=== PATIENT | female | born 1930 | race Caucasian/White ===

== ENCOUNTER 2016-12-21 09:52 | Inpatient (IN) | payer MEDICARE ==
[~2016-12-21] VITALS: Ht 162.6 cm; Wt 56.9 kg
--- OUTSIDE RECORDS SUMMARY | 2016-12-21 10:01 | XMS REPORT | Continuity of Care Document ---
Author Author [facility] Address Unknown Phone Unavailable Allergies Active Description Code Type Severity Reaction Onset Reported/Identified Relationship to Patient Clinical Status Yes Penicillins [id number] Drug Allergy Unknown N/A 07/28/2016 Medications Problems Date Dx Coded Attending Type Code Diagnosis Diagnosed By 11/01/2014 DELMA CASTRO, ARIAN Adams Ot 959.7 11/01/2014 DELMA CASTRO, ARIAN Adams Ot E849.0 11/01/2014 DELMA CASTRO, ARIAN Adams Ot E885.9 11/01/2014 Gibran CASTRO, Enrique Remy Ot 788.1 02/10/2015 ANGEL STEWART Ot 686.9 04/22/2015 DELMA CASTRO, ARIAN Adams Ot 959.7 04/22/2015 ARIAN NGUYỄN MD Ot E849.0 04/22/2015 ARIAN NGUYỄN MD Ot E885.9 04/22/2015 Enrique Leary MD Ot 788.1 04/22/2015 ANGEL STEWART Ot 686.9 04/28/2015 JEAN CASTRO, UBALDO V Ot 300.00 04/28/2015 JEAN CASTRO, UBALDO V Ot 366.9 05/26/2015 JEAN CASTRO, UBALDO V Ot H26.9 10/28/2015 STEVE PABLO MD Ot F32.9 MAJOR DEPRESSIVE DISORDER, SINGLE EPISOD 10/28/2015 STEVE PABLO MD Ot I10 ESSENTIAL (PRIMARY) HYPERTENSION 10/28/2015 STEVE PABLO MD Ot J44.9 CHRONIC OBSTRUCTIVE PULMONARY DISEASE , U 10/28/2015 STEVE PABLO MD Ot M85.80 OT DISRD OF BONE DENSITY AND STRUCTURE, 10/28/2015 STEVE PABLO MD Ot R42 DIZZINESS AND GIDDINESS 10/28/2015 STEVE PABLO MD Ot R51 HEADACHE 10/28/2015 STEVE PABLO MD Ot R53.1 WEAKNESS 10/28/2015 STEVE PABLO MD Ot Z87.891 PERSONAL HISTORY OF NICOTINE DEPENDENCE 10/29/2015 REYES , MEL Remy Ot R11.2 10/29/2015 REYES DO, MEL Remy Ot R19.7 10/29/2015 REYES DO, MEL Remy Ot R42 11/19/2015 REYES DO, MEL Remy Ot R11.2 NAUSEA WITH VOMITING, UNSPECIFIED 11/19/2015 REYES DO, MEL Remy Ot R19.7 DIARRHEA, UNSPECIFIED 11/19/2015REYES DO, MEL Remy Ot R42 DIZZINESS AND GIDDINESS 11/26/2015 REYES DO, MEL Remy Ot R11.2 NAUSEA WITH VOMITING, UNSPECIFIED 11/26/2015REYES DO, MEL Remy Ot R19.7 DIARRHEA, UNSPECIFIED 11/26/2015REYES DO, MEL Remy Ot R42 DIZZINESS AND GIDDINESS 03/04/2016 ANGEL STEWART Ot 686.9 LOCAL SKIN INFECTION NOS 07/28/2016 REYES MEL Ot S00.83XA CONTUSION OF OTHER PART OF HEAD, INITIAL 07/28/2016 REYES MEL Ot S41.011A LACERATION W/O FOREIGN BODY OF RIGHT MAX 07/28/2016 REYES , MEL Sandrita Ot S51.011A LACERATION WITHOUT FOREIGN BODY OF RIGHT 07/28/2016 REYES MEL Sandrita Ot W01.198A FALL SAME LEV FROM SLIP/TRIP W STRIKE AG 07/28/2016 AMY LOPEZMEL Ot Y92.[address] IN [facility] NON-INSTITUT ( PRIVATE 07/28/2016 REYES MEL LOPEZ Ot Z23 ENCOUNTER FOR IMMUNIZATION 07/30/2016 REYES , MEL Remy Ot S00.83XA CONTUSION OF OTHER PART OF HEAD, INITIAL 07/30/2016 REYES MEL LOPEZ Ot S41.011A LACERATION W/O FOREIGN BODY OF RIGHT MAX 07/30/2016 REYES MEL LOPEZ Ot S51.011A LACERATION WITHOUT FOREIGN BODY OF RIGHT 07/30/2016 REYES , MEL Remy Ot W01.198A FALL SAME LEV FROM SLIP/TRIP W STRIKE AG 07/30/2016 REYES MEL LOPEZ Ot Y92.[address] IN [facility] NON-INSTITUT ( PRIVATE 07/30/2016 MEL REYES DO Ot Z23 ENCOUNTER FOR IMMUNIZATION Procedures Results Encounters ACCT No. Visit Date/Time Discharge Status Pt. Type Provider Facility Loc./Unit Complaint [id number] 07/28/2016 10:57:00 2015 12:13:00 DIS Emergency REYES DO [facility] ED [id number] 07/28/2016 10:45:00 2015 10:45:00 CAN Preadmit NATALIA ROBLEDO, [facility] [id number] 10/27/2015 10:06:00 2015 17:08:00 DIS Inpatient BEV CASTRO, [facility] MED/SURG [id number] 05/26/2015 10:01:00 2014 13:50:00 DIS Outpatient JEAN CASTRO, [facility] [id number] 04/28/2015 06:58:00 2014 09:47:00 DIS Outpatient JEAN CASTRO, [facility] [id number] 11/01/2014 17:10:00 2014 23:59:59 [id number] 08/14/2013 12:25:00 2013 23:59:59 CLS Outpatient Gibran CASTRO, Enrique [facility] LAB [id number] 08/08/2013 18:40:00 2013 23:59:59 CLS Outpatient DELMA CASTRO, ARIAN Adams [facility] EMS [id number] 10/27/2015 07:47:00 ACT Outpatient [facility]
[2016-12-21 10:15] LABS: WHITE BLOOD COUNT 21.99 10^3uL (4.0-11.0)
[2016-12-21 10:16] LABS: MEAN CORPUSCULAR HGB CONC 32.9 g/dL (31.0-37.0); MEAN CORPUSCULAR VOLUME 81 FL (80-100); MEAN PLATELET VOLUME 11.1 FL (6.0-9.5); PLATELET COUNT 282 10^3uL (150-450)
[2016-12-21] MEDS ORDERED: ALBUTEROL/IPRATROPIUM 3MG-0.5MG/3ML (DUONEB) NEB VIAL INH ONE (10:20)
[2016-12-21 10:21] LABS: MEAN CORPUSCULAR HEMOGLOBIN 26.7 PG (26.0-34.0)
[2016-12-21 10:24] LABS: ANION GAP 17.1 MEQ/L (3-15); CALCULATED IONIZED CALCIUM 4.3 mg/dL (3.8-4.6); TOTAL PROTEIN 7.6 g/dL (6.4-8.5)
[2016-12-21] MEDS ORDERED: SODIUM CHLORIDE FLUSH 3 ML SYR IV PRN (10:25)
[2016-12-21] MEDS ORDERED: SODIUM CHLORIDE FLUSH 10 ML SYR IV PRN (10:25)
[2016-12-21 10:27] LABS: BAND NEUTROPHILS % 20 % (0-6); EOSINOPHILS % 0 % (0-4); LYMPHOCYTES # 0.7 #; MONOCYTES # 2.1 #; MONOCYTES % 10 % (3-11); SEGMENTED NEUTROPHILS % 66 % (51-67); TOTAL CELLS COUNTED 100
[2016-12-21 10:28] LABS: RBC MORPH NORMAL (NORMAL)
[2016-12-21] MEDS ORDERED: LEVOFLOXACIN 750 MG/150 ML IV 150 ML IV ONE (10:40)
--- NOTE | 2016-12-21 10:48 | NUR ---
Patient is unable to void at this time. Sipping water per request.
--- NOTE | 2016-12-21 10:58 | Diagnostic Imaging Report ---
INDICATION: Shortness of breath. COMPARISON: 10/27/2015. FINDINGS: Heterogeneous consolidations are present in the right mid and lower lung zones. These are new since prior examination. Possible small right pleural effusion. No pneumothorax. Normal heart size. Normal pulmonary vasculature. IMPRESSION: Right basilar heterogeneous consolidations may be due to pneumonia or aspiration, depending on clinical scenario. Consider followup PA and lateral chest radiographs in four weeks after appropriate medical management to assess for resolution and exclude underlying malignancy. Dictated by: Dictated on workstation # [id number]
[2016-12-21] MEDS ORDERED: POLYETHYLENE GLYCOL 17 GM (MIRALAX) PACKET PO PRN (12:05)
[2016-12-21] MEDS ORDERED: DOCUSATE SODIUM 100 MG (COLACE) CAP PO PRN (12:05)
[2016-12-21] MEDS ORDERED: ONDANSETRON 4 MG (ZOFRAN) ORAL DISSOLVE TAB PO PRN (12:05)
[2016-12-21] MEDS ORDERED: MAG HYDROX/AL HYDROX/SIMETH 200-200-20/5 ML (MAG-AL PLUS) 30 ML UDC PO PRN (12:05)
[2016-12-21] MEDS ORDERED: MAGNESIUM HYDROXIDE 80MG/ML (MILK OF MAGNESIA) 30 ML UDC PO PRN (12:05)
[2016-12-21] MEDS ORDERED: CALCIUM CARBONATE CHEWABLE 300 MG (TUMS) TABLET PO PRN (12:05)
[2016-12-21] MEDS ORDERED: methylPREDNISolone 125 MG (Solu-MEDROL) VIAL IV ONE (12:05)
[2016-12-21] MEDS ORDERED: PROMETHAZINE HCL INJ 12.5 MG in SODIUM CHLORIDE 25 ML IV PRN (12:05)
--- NOTE | 2016-12-21 12:15 | History and Physical (E) ---
History & Physical PCP: Enrique Leary MD CC: Respiratory failure, pneumonia HPI Carlee Morse is a 86 year old female admitted from ED 12/21 where she presented from assisted living via EMS for respiratory distress. ED physician reports illness onset was Sunday 12/17. Had nausea, no vomiting. Had some diarrhea. [place] lousy since. Congestion in chest started 12/19 and has been getting worse. Today she was found by EMS to have SpO2 78% RA. They gave two breathing treatments. In ED, tep 99.9, HR 133, RR 26. SpO2 improved to 91% on 4 L. WBC 21.99 with 66% N and 20% B. Chemistry showed bili 1.5, BUN 34, Cr 0.91, AlkP 142, NT-pro-BNP 1560, CRP 38.70. Lactic acid was normal. UA pending. CXR as noted below showing pneumonia. She was given levofloxacin in ED and admitted for further management. On arrival to unit, awake, interactive, oriented. Was able to ambulate from cart to bed. Speaking in full sentences but has a wet sounding cough. Tachycardia noted. Relates history as outlined above. [place] fevered at times but didn't check her temp. No chills. No vomiting. Diarrhea had already improved. Has had low appetite. Didn't use more of her albuterol. Was still taking fluticasone/salmeterol twice daily. PMH * Cataracts * COPD * Depression * Osteopenia * HTN * History of tobacco abuse * Vertigo PSH * Bilateral cataract surgery * Left Ankle ORIF * Bilateral breast biopsies ALLERGIES: Please see list at end of report. HOME MEDICATIONS: Please see list at end of report. FH Mother at a relatively young age (patient was 6 years old) of uncertain cause. May have had cancer. Father of old age due to [place]. One brother had heart problems. Sister of kidney failure. Another of ALS. SH . Lives independently in apartment at [facility]. Quit smoking two years ago. No drugs or alcohol use. Daughter lives in [place]. Son lives in [place]. ROS CONSTITUTION: [place] fevered. HEENT: No change in vision or hearing. Scant bleeding, lower lip. CV: No chest pain, palpitations. PULM: Per HPI, exam. GI: Nausea but no vomiting. Diarrhea resolved. : No dysuria. No blood in urine. MS: Back pain NEURO: No numbness or tingling. No weakness. INTEG: No rashes, lesions, or sores. ENDO: No heat or cold intolerance. No polydipsia or polyuria. HEME/LYMPH: No easy bruising or bleeding. No swollen glands. PSYCH: No change in mood or behavior. OBJECTIVE Vital Signs Date Time Temp Pulse Resp B/P Pulse Ox O2 Delivery O2 Flow Rate FiO2 12/21/16 10:05 91 Nasal Cannula 4 12/21/16 10:02 99.9 133 26 122/116 GEN: Awake, alert, oriented HEENT: EOMI, clear sclerae, dry oral mucosa. Sore to bottom lip. Edentulous. CV: Tachy, difficult to appreciate murmur. LUNGS: Diminished with apical wheeze bilaterally. ABD: Soft, NT/ND with normal bowel sounds. EXTR: No C/C/E. Normal peripheral pulses. INTEG: No rash. Age related changes. NEURO: No focal motor neuro deficit. Weight: 54.5 kg Laboratory Results-14 Days 12/21/16 09:36: Absolute Band Neutrophils 4.2, Alanine Aminotransferase (ALT/SGPT) 22L, Albumin 4.0#, Albumin/Globulin Ratio 1.111, Alkaline Phosphatase 142H, Anion Gap 17.1H, Aspartate Amino Transf (AST/SGOT) 36, BUN/Creatinine Ratio 37H, Band Neutrophils % 20H, Basophils # (Auto) , Basophils # (Manual) 0.0, Basophils % ( Manual) 0, Basophils (%) (Auto) , Blood Morphology Comment Normal, Blood Urea Nitrogen 34#H, C-Reactive Protein 38.70H, Calcium Level 10.1#, Calcium/Ionized Calcium Ratio 4.3, Calculated Osmolality 279L, Carbon Dioxide Level 24, Chloride Level 103, Creatinine 0.91, Differential Total Cells Counted 100, Eosinophils # 0.0, Eosinophils # (Auto) , Eosinophils % (Manual) 0, Eosinophils (%) (Auto) , Estimat Glomerular Filtration Rate 70.6, Estimated GFR (Non- 58.3, Glucose Level 120H, Hematocrit 42.00, Hemoglobin 13.8, Lymphocytes # 0.7, Lymphocytes # (Auto) , Lymphocytes % (Manual) 3L, Lymphocytes (%) (Auto) , Mean Corpuscular Hemoglobin 26.7, Mean Corpuscular Hemoglobin Concent 32.9, Mean Corpuscular Volume 81, Mean Platelet Volume 11.1H , Metamyelocytes % 1, Monocytes # 2.1, Monocytes # (Auto) , Monocytes % (Manual ) 10, Monocytes (%) (Auto) , RP-Fkc-V-Type Natriuretic Peptide 1560H, Neutrophils # 14.5, Neutrophils # (Auto) , Neutrophils (%) (Auto) , Platelet Count 282, Potassium Level 3.9, Red Blood Count 5.16H, Red Cell Distribution Width 14.2, Segmented Neutrophils % 66, Sodium Level 140, Total Bilirubin 1.5#H , Total Protein 7.6, White Blood Count 21.99H 12/21/16 10:25: Lactic Acid Level 2.1, Troponin I < 0.012 MICRO 12/21 Blood culture PENDING 12/21 Sputum culture PENDING IMAGING 12/21/16 CHEST 1 VIEW, AP/PA ONLY* INDICATION: Shortness of breath. COMPARISON: 10/27/2015. FINDINGS: Heterogeneous consolidations are present in the right mid and lower lung zones. These are new since prior examination. Possible small right pleural effusion. No pneumothorax. Normal heart size. Normal pulmonary vasculature. IMPRESSION: Right basilar heterogeneous consolidations may be due to pneumonia or aspiration, depending on clinical scenario. Consider followup PA and lateral chest radiographs in four weeks after appropriate medical management to assess for resolution and exclude underlying malignancy. ASSESSMENT Carlee Morse is a 86 year old female admitted from ED 12/21 with acute respiratory failure and SIRS/sepsis attributed to community acquired pneumonia. She has a few chronic problems. PLAN * SIRS/Sepsis: Due to pneumonia. * Acute Respiratory Failure: Due to pneumonia, COPD exacerbation. Acapella. Oxygen protocol. * Community Acquired Pneumonia: Blood culture pending. Sputum pending sample. Acapella. Guaifenesin. Levofloxacin. * COPD with Acute Exacerbation: Due to pneumonia. Oxygen protocol. Methylprednisolone with transition to prednisone. Fluticasone/salmeterol, albuterol. * Deconditioning: PT/OT eval and treat. * Dehydration: NS bolus given in ED. Additional 1 L maintenance on admit. Monitor closely. * Tachycardia: Likely due to sepsis. Check EKG, troponin, monitor tele until improving. * F/E/N: Regular diet. Peripheral IV. I&O, daily weight. * Prophylaxis: Enoxaparin * Code Status: Full * Dispo: Inpatient, expecting 3 day stay and need for skilled care. CHRONIC ISSUES * Depression: Citalopram * HTN: Observe. Allergies/Home Medications Allergies: Coded Allergies: Penicillins (Unverified Allergy, Unknown, 07/28/16) Reported Home Medications Scheduled Albuterol Sulfate (Proventil HFA) 6.7 GM IH DAILY (Reported) Fluticasone/Salmeterol (Advair 100-50 Diskus) 1 EACH IH BID (Reported) Hydroxyzine HCl (Hydroxyzine HCl) 25 MG PO HS (Reported) Sertraline HCl (Sertraline HCl) 25 MG PO DAILY (Reported) Copies to: End of Report . STEVE PABLO MD December 21, 2016 11:33
--- NOTE | 2016-12-21 12:15 | NUR ---
Pt admitted to room 314 via cart from ED. Pt ambulated from cart in floyd to room with 2 hand held assist, c/o weakness. States she has been using a walker at her apartment since Tuesday.
[2016-12-21 12:38] VITALS: BP 135/69
[2016-12-21 12:39] VITALS: BP 135/69
--- NOTE | 2016-12-21 13:13 | NUR ---
NS@100ml/hr infusing as ordered. Solu-medrol given. Tele in place. Pt has lunch tray but decreased appetite. Remains on 4L nc continued from ED- sats from 90-94%. RR 28/min. Will cont to monitor. Oriented to room and call light. Yellow gown/socks in place, bed alarm turned on- educated to call for assist getting up since she is weak- she verbalizes understanding.
[2016-12-21] MEDS: ACETAMINOPHEN 325 MG TAB (TYLENOL) PO PRN ×2 (14:27→21:39)
[2016-12-21 16:08] VITALS: BP 130/87
--- NOTE | 2016-12-21 18:00 | NUR ---
Pt resting in bed, daughter Anna at bedside. Had Tylenol 650mg PO at 1425 for c/o headache.
[2016-12-21 19:46] VITALS: BP 148/66
[2016-12-21] MEDS ORDERED: FLUTICASONE/SALMETEROL HFA 115/21 MCG (ADVAIR) COMMON CANNISTER INH ONE (19:51)
[2016-12-21] MEDS: FLUTICASONE/SALMETEROL HFA 115/21 MCG (ADVAIR) COMMON CANNISTER INH SCH (19:58)
--- NOTE | 2016-12-21 20:00 | NUR ---
Resting in bed. Resp even. Oxygen remains on at 4 liters per NC. Patient does get SOA with minimal exertion, does recover fairly readily. Telemetry shows Sinus Tach. Patient denies any discomforts. Has coarse lung sounds bilaterally. Bed alarm on for safety. Call light within reach.
--- NOTE | 2016-12-21 21:39 | NUR ---
Tylenol 650mg administered for sleep per patient request. Bed alarm on for safety.
[2016-12-22 00:22] VITALS: BP 125/50
[2016-12-22 03:56] VITALS: BP 122/54
[2016-12-22 06:00] LABS: MEAN CORPUSCULAR HEMOGLOBIN 27.4 PG (26.0-34.0); MEAN CORPUSCULAR HGB CONC 33.2 g/dL (31.0-37.0); MEAN CORPUSCULAR VOLUME 82 FL (80-100); MEAN PLATELET VOLUME 10.5 FL (6.0-9.5); PLATELET COUNT 293 10^3uL (150-450); WHITE BLOOD COUNT 13.99 10^3uL (4.0-11.0)
[2016-12-22 06:26] LABS: ALBUMIN 3.4 g/dL (3.4-5.0); ANION GAP 13.8 MEQ/L (3-15)
--- NOTE | 2016-12-22 06:28 | NUR ---
Rested well tonight. SL patent without complications. Pleasant. Still remains on 4 liters per nasal cannula. Does get SOA walking short distances. No coughing throughout the night. Ambulates to the bathroom with stand by assist. No discomforts voiced. Forgets limitations at times. Uses call light for needs. Bed alarm on for safety.
[2016-12-22 06:51] LABS: BAND NEUTROPHILS % 1 % (0-6); EOSINOPHILS % 0 % (0-4); MONOCYTES # 0.7 #; MONOCYTES % 5 % (3-11); SEGMENTED NEUTROPHILS % 87 % (51-67); TOTAL CELLS COUNTED 100
[2016-12-22 06:52] LABS: RBC MORPH NORMAL (NORMAL)
[2016-12-22] MEDS: FLUTICASONE/SALMETEROL HFA 115/21 MCG (ADVAIR) COMMON CANNISTER INH SCH ×2 (07:48→19:52)
--- NOTE | 2016-12-22 07:51 | NUR ---
SpO2 96% on 4Lpm cannula. Faint end exp wheezes at bases bilat. Acapella x 12 goals, fair effort. NPC.
[2016-12-22 08:00] VITALS: BP 113/49
--- NOTE | 2016-12-22 08:10 | NUR ---
Pt remains on 4L nc. RR 24, deep resps. Awake, alert/oriented. Daughter brought dentures last evening- in place.
[2016-12-22] MEDS: ENOXAPARIN 30 MG/0.3 ML (LOVENOX) SYR SC SCH (08:48)
[2016-12-22] MEDS: SERTRALINE 25 MG PO SCH (08:49)
[2016-12-22] MEDS: predniSONE 20 MG (DELTASONE) TABLET PO SCH (08:49)
--- NOTE | 2016-12-22 10:19 | Progress Note (E) ---
Progress Note SUBJECTIVE No issues reported overnight. Afebrile. 4 L oxygen, though. Weight up 3 kg from admit. WBC much improved, down to 13.99 from 21.99. Alert and interactive, pleasant. Didn't sleep well last night but she does feel better overall. Updated her on findings, plan of care. OBJECTIVE Vital Signs Date Time Temp Pulse Resp B/P Pulse Ox O2 Delivery O2 Flow Rate FiO2 12/22/16 09:23 98 12/22/16 08:00 97.7 18 113/49 97 Nasal cannula 12/21/16 16:08 4L.00 I & O 12/21/16 12/22/16 Cumulative From/Thru 19:00 07:00 12/21/16 10:02 - 12/22/16 05:26 Intake Total 20 ml 500 ml 520 ml Output Total 350 ml 350 ml Balance 20 ml 150 ml 170 ml GEN: Awake, alert, oriented HEENT: EOMI, clear sclerae, dry oral mucosa. Sore to bottom lip. Edentulous. CV: Tachycardia improved. LUNGS: Diminished with no audible R/R/W. ABD: Soft, NT/ND with normal bowel sounds. EXTR: No C/C/E. Normal peripheral pulses. INTEG: No rash. Age related changes. NEURO: No focal motor neuro deficit. Weight: 57.6 kg (54.5 kg on admit) Lab-Past 14 Days, 35 Results 12/21/16 09:36: Absolute Band Neutrophils 4.2, Alanine Aminotransferase (ALT/SGPT) 22L, Albumin 4.0#, Albumin/Globulin Ratio 1.111, Alkaline Phosphatase 142H, Anion Gap 17.1H, Aspartate Amino Transf (AST/SGOT) 36, BUN/Creatinine Ratio 37H, Band Neutrophils % 20H, Basophils # (Auto) , Basophils # (Manual) 0.0, Basophils % ( Manual) 0, Basophils (%) (Auto) , Blood Morphology Comment Normal, Blood Urea Nitrogen 34#H, C-Reactive Protein 38.70H, Calcium Level 10.1#, Calcium/Ionized Calcium Ratio 4.3, Calculated Osmolality 279L, Carbon Dioxide Level 24, Chloride Level 103, Creatinine 0.91, Differential Total Cells Counted 100, Eosinophils # 0.0, Eosinophils # (Auto) , Eosinophils % (Manual) 0, Eosinophils (%) (Auto) , Estimat Glomerular Filtration Rate 70.6, Estimated GFR (Non- 58.3, Glucose Level 120H, Hematocrit 42.00, Hemoglobin 13.8, Lymphocytes # 0.7, Lymphocytes # (Auto) , Lymphocytes % (Manual) 3L, Lymphocytes (%) (Auto) , Mean Corpuscular Hemoglobin 26.7, Mean Corpuscular Hemoglobin Concent 32.9, Mean Corpuscular Volume 81, Mean Platelet Volume 11.1H , Metamyelocytes % 1, Monocytes # 2.1, Monocytes # (Auto) , Monocytes % (Manual ) 10, Monocytes (%) (Auto) , WI-Yid-F-Type Natriuretic Peptide 1560H, Neutrophils # 14.5, Neutrophils # (Auto) , Neutrophils (%) (Auto) , Platelet Count 282, Potassium Level 3.9, Red Blood Count 5.16H, Red Cell Distribution Width 14.2, Segmented Neutrophils % 66, Sodium Level 140, Total Bilirubin 1.5#H , Total Protein 7.6, White Blood Count 21.99H 12/21/16 10:25: Lactic Acid Level 2.1, Troponin I < 0.012 12/21/16 15:17: Troponin I < 0.012 12/22/16 05:25: Absolute Band Neutrophils 0.1, Albumin 3.4, Anion Gap 13.8, Band Neutrophils % 1 , Basophils # (Auto) , Basophils # (Manual) 0.0, Basophils % (Manual) 0, Basophils (%) (Auto) , Blood Morphology Comment Normal, Blood Urea Nitrogen 31H , Calcium Level 9.7, Carbon Dioxide Level 27, Chloride Level 104, Creatinine 0.90, Differential Total Cells Counted 100, Eosinophils # 0.0, Eosinophils # ( Auto) , Eosinophils % (Manual) 0, Eosinophils (%) (Auto) , Estimat Glomerular Filtration Rate 71.5, Estimated GFR (Non- 59.1, Glucose Level 150#H, Hematocrit 37.90, Hemoglobin 12.6, Lymphocytes # 1.0, Lymphocytes # (Auto ) , Lymphocytes % (Manual) 7L, Lymphocytes (%) (Auto) , Mean Corpuscular Hemoglobin 27.4, Mean Corpuscular Hemoglobin Concent 33.2, Mean Corpuscular Volume 82, Mean Platelet Volume 10.5H, Monocytes # 0.7, Monocytes # (Auto) , Monocytes % (Manual) 5, Monocytes (%) (Auto) , Neutrophils # 12.2, Neutrophils # (Auto) , Neutrophils (%) (Auto) , Platelet Count 293, Potassium Level 3.8, Red Blood Count 4.60, Red Cell Distribution Width 14.0, Segmented Neutrophils % 87H, Sodium Level 141, White Blood Count 13.99H, Phosphorus Level 4.4# MICRO 12/21 Blood culture PENDING 12/21 Sputum culture PENDING IMAGING 12/21/16 CHEST 1 VIEW, AP/PA ONLY* INDICATION: Shortness of breath. COMPARISON: 10/27/2015. FINDINGS: Heterogeneous consolidations are present in the right mid and lower lung zones. These are new since prior examination. Possible small right pleural effusion. No pneumothorax. Normal heart size. Normal pulmonary vasculature. IMPRESSION: Right basilar heterogeneous consolidations may be due to pneumonia or aspiration, depending on clinical scenario. Consider followup PA and lateral chest radiographs in four weeks after appropriate medical management to assess for resolution and exclude underlying malignancy. ASSESSMENT Carlee Morse is a 86 year old female admitted from ED 12/21 with acute respiratory failure and SIRS/sepsis attributed to community acquired pneumonia. She has a few chronic problems. PLAN * SIRS/Sepsis: Due to pneumonia. * Acute Respiratory Failure: Due to pneumonia, COPD exacerbation. Acapella. Oxygen protocol. * Community Acquired Pneumonia: Blood culture pending. Sputum pending. Acapella. Guaifenesin. Levofloxacin (Q48H dosing due to renal function.) * COPD with Acute Exacerbation: Due to pneumonia. Oxygen protocol. Methylprednisolone with transition to prednisone. Fluticasone/salmeterol, albuterol. * Deconditioning: PT/OT eval and treat. * Dehydration: NS bolus given in ED. Additional 1 L maintenance on admit. Monitor closely. * Tachycardia: Resolved. Likely due to sepsis. * F/E/N: Regular diet. Peripheral IV. I&O, daily weight. * Prophylaxis: Enoxaparin * Code Status: Full * Dispo: Inpatient, expecting 3 day stay and need for skilled care. CHRONIC ISSUES * Depression: Citalopram * HTN: Observe. STEVE PABLO MD December 22, 2016 10:11
--- NOTE | 2016-12-22 10:35 | NUR ---
NUTRITION ASSESSMENT Level 1 Patient: Carlee Morse Age/Sex: 86/F Date Screened: 12-22-16 Weight: 126.7#/57.6 kg Height: 64 inches Primary Diagnosis: pneumonia, SIRS/sepsis Diet Order: regular Relevant labs: glucose 150 Food allergies: N Nutrition Assessment Criteria Age over 80: 4 points Body Mass Index (BMI) under 19: N Admission Screening Indicates Risk? N Moderate/High Risk Diagnosis: 3 points TPN or PPN: N NPO or clear liquid diet: N Serum Glucose <70 or >180: N Hgb A1c >6.7: N/A Total: 7 points Risk Screen: __ Patient at low nutritional risk based on available data; reevaluate in 5-7 days __ Patient at moderate nutritional risk based on available data; reevaluate in 3-5 days _X_ Patient at high nutritional risk; complete Nutrition Assessment within 48 hours of admission.
--- NOTE | 2016-12-22 11:13 | NUR ---
NUTRITION ASSESSMENT Level II Patient: Carlee Morse Age/Sex: 86/F Date Assessed: 12-22-16 ASSESSMENT Pertinent History: Patient admitted with pneumonia and SIRS/sepsis and screened at high nutritional risk secondary to elderly age and diagnosis. PMHx includes COPD, cataracts, depression, osteopenia, and HTN. She lives at Assisted Living. Pt. reports decreased appetite with some nausea; noted edentulism and a sore on her bottom lip present on admission. Weight hx. includes 128# in September 2015. Meds/Nutrition: Prednisone Weight: 126.7#/57.6 kg Height: 64 inches Body Mass Index (BMI): 21.8 Caret Body Weight : 120#/54.5 kg % IBW: 105% GASTROINTESTINAL Appetite: fair, eating 25-50% Diet Order: regular Unintentional loss of >10 lbs. in 3 months: N Difficult to chew/swallow: N Diabetes: N Relevant Labs: glucose 150 Calculations for Nutritional Assessment Estimated calorie needs: 25-28 kcals/kg = 1,425-1,600 kcals Estimated protein needs: 1.0-1.2 g/kg = 57-68 g./day DIAGNOSIS 1. Nutrition Diagnosis: Potential for inadequate intake related to anorexia as evidenced by reports of decreased appetite recently along with nausea and illness. NUTRITIONAL INTERVENTION Goal: Patient will receive adequate nutrition to meet her needs. Plan: Will provide regular diet as ordered and monitor intake for adequacy. MONITORING & EVALUATION _X_ Monitor patients menu selections _X_ Monitor patients food intake per nursing notes __ Monitor NPO/clear liquid days __ Monitor lab values __ Monitor I&O __ Other
[2016-12-22 12:00] VITALS: BP 140/46
[2016-12-22] MEDS: ACETAMINOPHEN 325 MG TAB (TYLENOL) PO PRN (12:30)
--- NOTE | 2016-12-22 12:30 | NUR ---
Pt c/o headache- rated 3/10- Tylenol offered, given at this time. daughter at bedside.
--- NOTE | 2016-12-22 12:50 | NUR ---
Information sent to [facility] to review for acceptance. Pt. has been accepted to their facility for skilled care. Possible discharge Tuesday.
--- NOTE | 2016-12-22 14:25 | NUR ---
Pt has been awake, alert/oriented all day, states she feels better than on admission. She reports cough is not as persistent as yesterday- shift stacker reported that she had not coughed all night. Daughter and son have been to visit. She has showered today, via shower chair. Yvrose RT reports she titrated O2 to 3L nc at 1340. Pt up in chair, visiting with daughter this afternoon. 20g IV intact to RFA.
--- NOTE | 2016-12-22 15:09 | Physical Therapy Evaluation(E) ---
Plan of Care STG: Plan-Treatment Functional: Amb Safe w/ AD on level STG Time Frame: 3 Days Goals Discussed/Agreed: Yes Plan: Gait & Transfer Training, Neuro Re-Education, Progressive Ambulation, Strengthening, Transfer Training, Therapy Excercise Discharge Recommendations: TCU/Skilled NH Aware of Dx and Prognosis: Yes Aware of Risk & Benefit: Yes To be Seen: Daily Tuesday-Tuesday Initial Evaluation Service Date/Time 12/22/16, 14:57 Primary Diagnosis: (1) Community acquired pneumonia ICD Code: J18.9 (2) SIRS (systemic inflammatory response syndrome) ICD Code: R65.10 (3) Upper respiratory infection ICD Code: J06.9 (4) Sepsis ICD Code: A41.9 Treatment Diagnosis: Onset Date: 12/21/2016 Start of Care Date: December 22, 2016 Resuscitation Status: Full Code Precaution/Isolation: Standard Precautions Fall Level: High Risk 51 or greater Initial Assessment Reason for Rehab: Increase Mobility, Increase Strength, Increase Balance, Increase Transfers, Increase Endurance Medical History: COPD, Hypertension, Other (vertigo, left ankle ORIF) Pain Location/Comment Mild left groin pain Prior Level of Function The patient lives at a [facility]. The patient ambulated independently around her home, no entry stairs. She was still driving. Rehabilitation Potential: Good Rehab Potential Based on Patient is motivated to improve and return home. Distance Walked in Feet Patient declined ambulation. ROM/Strength Hip Mobility: Right Hip Strength: 4- Left Hip Strength: 4- Knee Flexion Mobility: Right Knee Flexion Strength: 4- Left Knee Flexion Strength: 4- Knee Extension Mobility: Right Knee Extension Strength: 4 Left Knee Extension Strength: 4 Ankle Mobility: Right Ankle Strength: 4 Left Ankle Strength: 4 Assessment/Goals Initial Transfer Assessment Comment Patient declined moving from chair. Per review of chart patient was SBA ambulating to bathroom with nursing. Transfer Short Term Goals Rolling: Modified [place] Sit-Supine: Modified [place] Sitting Edge of Bed: Modified [place] Supine-Sit: Modified [place] Sit-Stand from bed: Contact Guard Assist Stand-Sit: Contact Guard Assist Ambulation: Contact Guard Assist (100 feet x 2 ) Distance to Walk in Feet 100 feet x 2 Transfer Longterm Goals Comment No intermediate manager goals to be set secondary to short anticipated length of stay Treatments Treatments Extremity: Both Lower Extremity Assistance: AROM Exercise: AP, Hip Flexion Comment Knee flexion/extension AROM; patient also encouraged to use flutter device throughout day. Coding Time In: 1135 Time Out: 1221 Total Minutes: 46 Charges: 76466 Eval< 20 min, 26726 Exercise Therp 15 m FATOUMATA CARIAS PT December 22, 2016 15:09
[2016-12-22 15:32] VITALS: BP 139/49
--- NOTE | 2016-12-22 15:44 | NUR ---
Pt working with Tierra DELCID
--- NOTE | 2016-12-22 17:46 | OT Therapy Evaluation (E) ---
POC Plan of Care Problems Identified: Activity Tolerance, ADLs, Lt UE Strength, Rt UE Strength, Safety Awareness Plan: Evaluation-OT, ADL/Self Care Management, Therapy Exercises, Therapy Activities, Pt/Family/Staff Education Frequency of OT: Five times weekly Duration of OT: Other (3 days ) Therapy to Include: ADL training, Balance with ADLs, Pt/family education, Therapeutic activities, UE strengthing Discharge Recommendations: TCU/Skilled NH Pt would benefit from skilled occupational therapy services to improve independence with self care tasks for return to prior level of function. Additionally to provide education to pt on energy conservation techniques to improve performance and ease of tasks at home. Pt. Aware of Dx and Prognosis: Yes Pt. Aware of Risk & Benefit: Yes Goals: Discussed with patient Short Term Goals Will Perform Grooming: With Setup/SBA Will Dress Upper Extremity: With Setup/SBA Will Dress Lower Extremity: With Setup/SBA Will do Bathing: With Setup/SBA Will do Toileting: With Setup/SBA Will Perform Funct Transfer: With Setup/SBA STG #1 Pt will participate in 15 min of ther-ex with use of energy conservation techniques as needed. STG #2 Pt will demonstrate ability to apply deep breathing techniques during daily activities and exercises with minimal prompting to ease shortness of breath and improve performance. Inital Evaluation/General Service Date/Time 12/22/16, 17:39 Primary Diagnosis: (1) Community acquired pneumonia ICD Code: J18.9 (2) SIRS (systemic inflammatory response syndrome) ICD Code: R65.10 (3) Upper respiratory infection ICD Code: J06.9 (4) Sepsis ICD Code: A41.9 Treatment Diagnosis: (1) Weakness ICD Code: R53.1 Onset Date: 12/17/16 Start of Care Date: December 22, 2016 Precaution/Isolation: Standard Precautions Fall Level: High Risk 51 or greater Resuscitation Status: Full Code Reason for Referral: Evaluation and Treat Pertinent Medical History: COPD, Hypertension, Other (vertigo, left ankle ORIF) Pain Level: 0 Oxygen Needed: Nasal cannula O2 liters/minute: 3L Rehabilitation Potential: Good Potential Based On Patient's prior level of function and motivation to get stronger. Rational for Skilled Treatment: Allow return to home, Deconditioning, Maximize Safety, Prevent Falls Living Status Prior to Admit: Alone ([facility]dependent [facility] ) Prior Level of Function: Independent ADLs Prior to onset, pt was independent with self care tasks and simple IADL tasks. Pt reports typically completing microwavable meals. Pt still drives and complete grocery shopping. Pt reports over the past week, she has been more out of breath and has felt weak. Support Persons: Adult Child (Son lives in [place]) Entry Into Home: Level Entry Shower and Tub Type: Tub/shower combo-rails (Pt has been completing a sponge bath at the sink ) Toilet Type: Raised with grab bars Comment Pt uses no assistive device for functional mobility. Current Function Assessment Mental Status Patient Orientation: Person, Place, Time, Situation Mental Status: Alert Cognition Attention: Intact Memory: Impaired Safety/Judgement: Impaired (Cueing for walker safety. ) Visual/Perceptual Skills Glassess: Yes Hearing: Impaired Hand Dominance Hand Dominance: Right ROM/Strength Range of Motion : Range of Motion Location: Bilateral ROM: Shoulder Limited Strength Comment BUE 4-/5 Endurance Activity Endurance: Becomes SOB, Fair, Needs energy saving techn, Requires freq rest breaks Bed Mobility/Transfers Bed Mobility: SBA Supine from Sit: SBA Sit to Stand: CGA Chair Transfer: CGA Sitting Balance: WFL ADLs Hand : Feeding Self: Independent Grooming: Grooming Status: Setup/SBA Dressing Dressing: Minimum assist Bathing Shower/Bench Transfer Ability: CGA Bathing- Type of Assistance: Minimum Assist Toileting Toilet Hygiene: Minimum Assist Toilet Transfer Ability: CGA CPT/G Codes Time In: 15:26 Time Out: 16:01 Total Minutes: 35 ( eval) CPT Codes: 71270 Eval< 20 minutes LIUDMILA GROVES OT December 22, 2016 17:46
--- NOTE | 2016-12-22 17:50 | NUR ---
Pt calls appropriately to use bathroom- ambulates to BR with 1SBA and walker/gait belt. Steady gait but unsteady getting off toilet.
[2016-12-22 19:42] VITALS: BP 123/79
--- NOTE | 2016-12-22 19:56 | NUR ---
SpO2 96% on 3Lpm nasal cannula while sitting in chair. BS clear and equal, but decreased.
[2016-12-23] VITALS (7 sets, daily range): BP systolic 115–160; BP diastolic 50–88
--- NOTE | 2016-12-23 06:05 | NUR ---
Pt. had an uneventful shift; slept in long intervals; O2 at 3L via NC; rare to occasional cough noted. Pt. called for assist PRN when ambulating to and fro bathroom; unsteady gait. Pt. denied pain. Pt. is very pleasant and cooperative.
[2016-12-23 06:07] LABS: MEAN CORPUSCULAR HGB CONC 31.9 g/dL (31.0-37.0); MEAN CORPUSCULAR VOLUME 82 FL (80-100); MEAN PLATELET VOLUME 10.1 FL (6.0-9.5); PLATELET COUNT 313 10^3uL (150-450); WHITE BLOOD COUNT 14.86 10^3uL (4.0-11.0)
[2016-12-23 06:15] LABS: MEAN CORPUSCULAR HEMOGLOBIN 26.2 PG (26.0-34.0)
[2016-12-23 06:21] LABS: BAND NEUTROPHILS % 1 % (0-6); EOSINOPHILS % 0 % (0-4); LYMPHOCYTES # 1.9 #; MONOCYTES # 0.7 #; MONOCYTES % 5 % (3-11); RBC MORPH NORMAL (NORMAL); SEGMENTED NEUTROPHILS % 81 % (51-67); TOTAL CELLS COUNTED 100
--- NOTE | 2016-12-23 08:15 | NUR ---
Pt sitting up on edge of bed at this time. Denies pain. States jokingly, "you just don't let anyone sleep around here!". SL intact. Skin warm, dry, intact. Resprs nonlabored, even on 3L NC. Denies needs. Call light within reach.
[2016-12-23] MEDS: FLUTICASONE/SALMETEROL HFA 115/21 MCG (ADVAIR) COMMON CANNISTER INH SCH ×2 (08:21→20:24)
--- NOTE | 2016-12-23 08:23 | NUR ---
SpO2 86% after pt returned from BR and had cannula out of her nose on her forw Addendum: 12/23/16 at 0825 by Doug Evans RT Had cannula on her forehead. Returned to nose and is currently on 3Lpm.
--- NOTE | 2016-12-23 08:50 | NUR ---
SpO2 90% on 3Lpm.
[2016-12-23] MEDS: predniSONE 20 MG (DELTASONE) TABLET PO SCH (08:54)
[2016-12-23] MEDS: SERTRALINE 25 MG PO SCH (08:54)
[2016-12-23] MEDS ORDERED: SODIUM CHLORIDE 100 ML ONE (08:55)
[2016-12-23] MEDS ORDERED: LEVOFLOXACIN 750 MG/150 ML IV 150 ML IV SCH (09:00)
[2016-12-23] MEDS: ENOXAPARIN 30 MG/0.3 ML (LOVENOX) SYR SC SCH (09:04)
[2016-12-23 09:33] LABS: ALBUMIN 2.8 g/dL (3.4-5.0)
--- NOTE | 2016-12-23 09:40 | Progress Note (E) ---
Progress Note SUBJECTIVE Weaned from 4 to 3 L NC yesterday. Afebrile. BP a little elevated at times. Had 1 BM. No major issues reported overnight. WBC slightly higher than yesterday, 14.86 from 13.99 but is getting steroids. Chemistry is still not reported in the EHR. Lab notified. OBJECTIVE Vital Signs Date Time Temp Pulse Resp B/P Pulse Ox O2 Delivery O2 Flow Rate FiO2 12/23/16 07:40 97.0 81 24 160/73 96 Nasal cannula 12/21/16 16:08 4L.00 I & O 12/22/16 12/23/16 Cumulative From/Thru 19:00 07:00 12/21/16 10:02 - 12/23/16 06:07 Intake Total 420 ml 574 ml 1514 ml Output Total 50 ml 700 ml 1100 ml Balance 370 ml -126 ml 414 ml GEN: Awake, alert, oriented. A bit breathless at bedside with physical therapy. Recovered gradually. HEENT: EOMI, clear sclerae, dry oral mucosa. Sore to bottom lip improving. Dentures. CV: Tachycardia improved. Regular without significant murmur. LUNGS: Diminished throughout. Apical wheezes audible anteriorly. ABD: Soft, NT/ND with normal bowel sounds. EXTR: No C/C/E. Normal peripheral pulses. INTEG: No rash. Age related changes. NEURO: No focal motor neuro deficit. Weight: 57.0 kg (54.5 kg on admit) Lab-Past 14 Days, 35 Results 12/21/16 09:36: Absolute Band Neutrophils 4.2, Alanine Aminotransferase (ALT/SGPT) 22L, Albumin 4.0#, Albumin/Globulin Ratio 1.111, Alkaline Phosphatase 142H, Anion Gap 17.1H, Aspartate Amino Transf (AST/SGOT) 36, BUN/Creatinine Ratio 37H, Band Neutrophils % 20H, Basophils # (Auto) , Basophils # (Manual) 0.0, Basophils % ( Manual) 0, Basophils (%) (Auto) , Blood Morphology Comment Normal, Blood Urea Nitrogen 34#H, C-Reactive Protein 38.70H, Calcium Level 10.1#, Calcium/Ionized Calcium Ratio 4.3, Calculated Osmolality 279L, Carbon Dioxide Level 24, Chloride Level 103, Creatinine 0.91, Differential Total Cells Counted 100, Eosinophils # 0.0, Eosinophils # (Auto) , Eosinophils % (Manual) 0, Eosinophils (%) (Auto) , Estimat Glomerular Filtration Rate 70.6, Estimated GFR (Non- 58.3, Glucose Level 120H, Hematocrit 42.00, Hemoglobin 13.8, Lymphocytes # 0.7, Lymphocytes # (Auto) , Lymphocytes % (Manual) 3L, Lymphocytes (%) (Auto) , Mean Corpuscular Hemoglobin 26.7, Mean Corpuscular Hemoglobin Concent 32.9, Mean Corpuscular Volume 81, Mean Platelet Volume 11.1H , Metamyelocytes % 1, Monocytes # 2.1, Monocytes # (Auto) , Monocytes % (Manual ) 10, Monocytes (%) (Auto) , CS-Uvk-[id number]-Type Natriuretic Peptide 1560H, Neutrophils # 14.5, Neutrophils # (Auto) , Neutrophils (%) (Auto) , Platelet Count 282, Potassium Level 3.9, Red Blood Count 5.16H, Red Cell Distribution Width 14.2, Segmented Neutrophils % 66, Sodium Level 140, Total Bilirubin 1.5#H , Total Protein 7.6, White Blood Count 21.99H 12/21/16 10:25: Lactic Acid Level 2.1, Troponin I < 0.012 12/21/16 15:17: Troponin I < 0.012 12/22/16 05:25: Absolute Band Neutrophils 0.1, Albumin 3.4, Anion Gap 13.8, Band Neutrophils % 1 , Basophils # (Auto) , Basophils # (Manual) 0.0, Basophils % (Manual) 0, Basophils (%) (Auto) , Blood Morphology Comment Normal, Blood Urea Nitrogen 31H , Calcium Level 9.7, Carbon Dioxide Level 27, Chloride Level 104, Creatinine 0.90, Differential Total Cells Counted 100, Eosinophils # 0.0, Eosinophils # ( Auto) , Eosinophils % (Manual) 0, Eosinophils (%) (Auto) , Estimat Glomerular Filtration Rate 71.5, Estimated GFR (Non- 59.1, Glucose Level 150#H, Hematocrit 37.90, Hemoglobin 12.6, Lymphocytes # 1.0, Lymphocytes # (Auto ) , Lymphocytes % (Manual) 7L, Lymphocytes (%) (Auto) , Mean Corpuscular Hemoglobin 27.4, Mean Corpuscular Hemoglobin Concent 33.2, Mean Corpuscular Volume 82, Mean Platelet Volume 10.5H, Monocytes # 0.7, Monocytes # (Auto) , Monocytes % (Manual) 5, Monocytes (%) (Auto) , Neutrophils # 12.2, Neutrophils # (Auto) , Neutrophils (%) (Auto) , Platelet Count 293, Potassium Level 3.8, Red Blood Count 4.60, Red Cell Distribution Width 14.0, Segmented Neutrophils % 87H, Sodium Level 141, White Blood Count 13.99H, Phosphorus Level 4.4# 12/23/16 05:30: Absolute Band Neutrophils 0.1, Albumin [Pending], Anion Gap [Pending], Band Neutrophils % 1, Basophils # (Auto) , Basophils # (Manual) 0.0, Basophils % ( Manual) 0, Basophils (%) (Auto) , Blood Morphology Comment Normal, Blood Urea Nitrogen [Pending], Calcium Level [Pending], Carbon Dioxide Level [Pending], Chloride Level [Pending], Creatinine [Pending], Differential Total Cells Counted 100, Eosinophils # 0.0, Eosinophils # (Auto) , Eosinophils % (Manual) 0 , Eosinophils (%) (Auto) , Estimat Glomerular Filtration Rate [Pending], Estimated GFR (Non- [Pending], Glucose Level [Pending], Hematocrit 37.00, Hemoglobin 11.8L, Lymphocytes # 1.9, Lymphocytes # (Auto) , Lymphocytes % (Manual) 13L, Lymphocytes (%) (Auto) , Mean Corpuscular Hemoglobin 26.2, Mean Corpuscular Hemoglobin Concent 31.9, Mean Corpuscular Volume 82, Mean Platelet Volume 10.1H, Metamyelocytes % 0, Monocytes # 0.7, Monocytes # (Auto) , Monocytes % (Manual) 5, Monocytes (%) (Auto) , Neutrophils # 12.0, Neutrophils # (Auto) , Neutrophils (%) (Auto) , Phosphorus Level [ Pending], Platelet Count 313, Potassium Level [Pending], Red Blood Count 4.50, Red Cell Distribution Width 14.2, Segmented Neutrophils % 81H, Sodium Level [ Pending], White Blood Count 14.86H MICRO 12/21 Blood culture Negative to date 12/21 Sputum culture PENDING IMAGING 12/21/16 CHEST 1 VIEW, AP/PA ONLY* INDICATION: Shortness of breath. COMPARISON: 10/27/2015. FINDINGS: Heterogeneous consolidations are present in the right mid and lower lung zones. These are new since prior examination. Possible small right pleural effusion. No pneumothorax. Normal heart size. Normal pulmonary vasculature. IMPRESSION: Right basilar heterogeneous consolidations may be due to pneumonia or aspiration, depending on clinical scenario. Consider followup PA and lateral chest radiographs in four weeks after appropriate medical management to assess for resolution and exclude underlying malignancy. ASSESSMENT Carlee Morse is a 86 year old female admitted from ED 12/21 with acute respiratory failure and SIRS/sepsis attributed to community acquired pneumonia. She has a few chronic problems. PLAN * SIRS/Sepsis: Resolving. Due to pneumonia. * Acute Respiratory Failure: Due to pneumonia, COPD exacerbation. On 4 L oxygen on admit. Not normally on oxygen at home. Acapella. Oxygen protocol. * Community Acquired Pneumonia: Blood culture negative to date. Sputum pending. Acapella. Guaifenesin. Levofloxacin (Q48H dosing due to renal function.) * COPD with Acute Exacerbation: Due to pneumonia. Oxygen protocol. Methylprednisolone with transition to prednisone. Fluticasone/salmeterol, albuterol. * Deconditioning: PT/OT eval and treat. * Dehydration: NS bolus given in ED. Additional 1 L maintenance on admit. Monitor closely. * Tachycardia: Resolved. Likely due to sepsis. * F/E/N: Regular diet. Peripheral IV. I&O, daily weight. * Prophylaxis: Enoxaparin * Code Status: Full * Dispo: Inpatient, expecting 3 day stay and need for skilled care. Had considered d/c to skilled care 12/24 but may need a little more time... defer to 12/25 at earliest. CHRONIC ISSUES * Depression: Citalopram * HTN: Observe. STEVE PABLO MD December 23, 2016 09:38
--- NOTE | 2016-12-23 09:55 | PT Daily Note Inpatient (E) ---
PT Daily Treatment Service Date/Time 12/23/16, 09:52 Medical Diagnosis: (1) Community acquired pneumonia ICD Code: J18.9 (2) SIRS (systemic inflammatory response syndrome) ICD Code: R65.10 (3) Upper respiratory infection ICD Code: J06.9 (4) Sepsis ICD Code: A41.9 Physical Therapy: Precaution/Isolation: Standard Precautions Resuscitation Status: Full Code Fall Level: High Risk 51 or greater Subjective Pt agrees to therapy, sitting EOB filling out menu, asks for assistance, no c/o pn Pain Level: 0 Oxygen Delivery: Nasal cannula O2 liters/minute: 3 Treatments Sit, Stand, Supine: Sitting Extremity: Both Lower Extremity Assistance: AROM Repetition: 1 x 10 Exercise: LAQ, Hip Flexion, TR, HR Transfers Sit-Stand from bed: Supervision or setup Stand-Sit: Supervision or setup Pivot Transfers: Supervision or setup Gait Ambulation: Supervision or setup Distance Walked: 120' 4L O2 Weight Bearing Status: Full Assistive Device: FWW Gait Assist: Supervision Required Gait Description: Normal:No Sig. Deviation, Safe w/ Assistive Device, Flexed Trunk Gait Training: Limitations: Fatigue Education/Plan Assessment Tolerated treatment well, fatigued at end of walk Safety Awareness: Impaired Response to Treatment: Improving Plan Cont POC Patient will be seen: Daily Tuesday-Tuesday Discharge Recommendations: TCU/Skilled NH Coding Time In: 918 Time Out: 948 Total Minutes: 30 Charges: 59193 Exercise Therp MANOLO Aj PTA December 23, 2016 09:55
--- NOTE | 2016-12-23 14:20 | NUR ---
MULTIDISCIPLINARY MTG/DR. PABLO: Pt. admitted with SIRS/Sepsis, pneumonia with COPD Exacerbation. Pt. was on 4L at admission but is now down to 2L. Pt. is receiving standard therapies and PT/OT have been ordered. Pt. to possibly discharge to [facility] for skilled care on Tuesday. SW will follow up with [facility] regarding admission on Tuesday.
--- NOTE | 2016-12-23 17:07 | OT Daily Note Inpatient (E) ---
OT Daily Treatment Service Date/Time 12/23/16, 17:03 Primary Diagnosis: (1) Community acquired pneumonia ICD Code: J18.9 (2) SIRS (systemic inflammatory response syndrome) ICD Code: R65.10 (3) Upper respiratory infection ICD Code: J06.9 (4) Sepsis ICD Code: A41.9 Treatment Diagnosis: (1) Weakness ICD Code: R53.1 Onset Date: 12/17/16 Start of Care Date: December 22, 2016 Precaution/Isolation: Standard Precautions Fall Level: High Risk 51 or greater Resuscitation Status: Full Code Current Activity: Agrees to participate Pt reports taking a shower today and was a little exhausted. At times, feeling out of breath. Pain Level: 0 Oxygen Needed: Nasal cannula O2 liters/minute: 2 Current Function Assessment Cognition Attention: Intact Memory: Impaired Safety/Judgement: Impaired (Cueing for walker safety. ) Visual/Perceptual Skills Glassess: Yes Hearing: Impaired Hand Dominance Hand Dominance: Right Treatments Strengthening Exercise Upper Extremity Strength Exerc : Comment In sitting, pt participated in BUE strengthening with use of red theraband to increase strength for participation in daily tasks. Educated and discussed importance of diaphragmatic breathing to ease shortness of breath. Following demonstration of breathing, pt required moderate verbal cueing for proper techniques. Completed 5 x 5 exercises with therapeutic rest breaks in between focused on deep breathing. Cueing required to complete breathing during exercises. Noted- pt demonstrated difficulty with completing exercises and breathing. During rest break, educated and discussed use of energy conservation techniques to conserve energy for daily tasks. Pt verbalized understanding. Noted- therapist assessed pt's O2 during exercises with it being 94%. Education/Assessment Rehabilitation Potential: Good Some noted difficulty completing diaphragmatic breathing. Required moderate cueing for proper technique. POC Plan of Care Problems Identified: Activity Tolerance, ADLs, Lt UE Strength, Rt UE Strength, Safety Awareness Plan: Evaluation-OT, ADL/Self Care Management, Therapy Exercises, Therapy Activities, Pt/Family/Staff Education Frequency of OT: Five times weekly Duration of OT: Other (3 days ) Therapy to Include: ADL training, Balance with ADLs, Pt/family education, Therapeutic activities, UE strengthing Discharge Recommendations: TCU/Skilled NH Pt. Aware of Dx and Prognosis: Yes Pt. Aware of Risk & Benefit: Yes Goals: Discussed with patient Short Term Goals Will Perform Grooming: With Setup/SBA Will Dress Upper Extremity: With Setup/SBA Will Dress Lower Extremity: With Setup/SBA Will do Bathing: With Setup/SBA Will do Toileting: With Setup/SBA Will Perform Funct Transfer: With Setup/SBA STG #1 Pt will participate in 15 min of ther-ex with use of energy conservation techniques as needed. STG #2 Pt will demonstrate ability to apply deep breathing techniques during daily activities and exercises with minimal prompting to ease shortness of breath and improve performance. CPT/G Codes Time In: 16:27 Time Out: 16:51 Total Minutes: 24 (09/24 TE) CPT Codes: 48014 Exercise Ther (09/24 TE) LIUDMILA GROVES OT December 23, 2016 17:07
--- NOTE | 2016-12-23 18:05 | NUR ---
Pt sitting up in chair at this time. Gave herself a bed bath in the chair this afternoon with some assistance, states "I don't want to bother getting in the shower while I'm hooked up to all this stuff", referring to O2 and IV tubing. Denies pain. SL intact. Skin warm, dry, intact. Resprs nonlabored, even on 2L NC. Denies needs. Call light within reach.
[2016-12-23] MEDS: ACETAMINOPHEN 325 MG TAB (TYLENOL) PO PRN (20:04)
--- NOTE | 2016-12-23 20:04 | NUR ---
Tylenol 650 mg PO given for 'slight headache'. Pt. states she had increased physical activity today; "And that may be adding to it-I am tired". Pt. resting in bed; O2 at 2L via NC; resp are unlabored with conversation. Call light and H2O within reach.
--- NOTE | 2016-12-23 20:30 | NUR ---
RT adjusts O2 down to 1L via NC.
[2016-12-24 04:15] VITALS: BP 135/51
--- NOTE | 2016-12-24 05:30 | NUR ---
Pt. has had an uneventful shift thus far; O2 at 1L via NC; calls for stand by assist to ambulate into bathroom. Pt. has slept in long intervals; call light and H2O within reach.
[2016-12-24 06:23] LABS: MEAN CORPUSCULAR HGB CONC 32.5 g/dL (31.0-37.0); MEAN CORPUSCULAR VOLUME 83 FL (80-100); MEAN PLATELET VOLUME 9.7 FL (6.0-9.5); PLATELET COUNT 358 10^3uL (150-450); WHITE BLOOD COUNT 15.55 10^3uL (4.0-11.0)
[2016-12-24 06:34] LABS: MEAN CORPUSCULAR HEMOGLOBIN 26.9 PG (26.0-34.0)
[2016-12-24 06:39] LABS: BAND NEUTROPHILS % 0 % (0-6); EOSINOPHILS % 0 % (0-4); LYMPHOCYTES # 1.6 #; MONOCYTES # 1.1 #; MONOCYTES % 7 % (3-11); RBC MORPH NORMAL (NORMAL); SEGMENTED NEUTROPHILS % 83 % (51-67); TOTAL CELLS COUNTED 100
[2016-12-24 06:45] LABS: ALBUMIN 2.8 g/dL (3.4-5.0); ANION GAP 9.7 MEQ/L (3-15)
[2016-12-24] MEDS: FLUTICASONE/SALMETEROL HFA 115/21 MCG (ADVAIR) COMMON CANNISTER INH SCH ×2 (07:31→20:40)
[2016-12-24 08:00] VITALS: BP 127/47
[2016-12-24] MEDS: ENOXAPARIN 30 MG/0.3 ML (LOVENOX) SYR SC SCH (08:37)
[2016-12-24] MEDS: SERTRALINE 25 MG PO SCH (08:37)
[2016-12-24] MEDS: predniSONE 20 MG (DELTASONE) TABLET PO SCH (08:37)
--- NOTE | 2016-12-24 08:45 | NUR ---
SOA WHEN AMB AND AFTER RESTING IN CHAIR. BILAT WHEEZES NOTED. GLORIA RN REPORTS O2 SAT 89-90 ON O2 1L/NC. RT NOTIFIED OF NEED FOR BREATHING TX.
[2016-12-24] MEDS: ALBUTEROL 0.083% NEB SOLUTION 2.5 MG/3 ML VIAL INH PRN (08:50)
--- NOTE | 2016-12-24 12:12 | PT Daily Note Inpatient (E) ---
PT Daily Treatment Service Date/Time 12/24/16, 12:04 Medical Diagnosis: (1) Community acquired pneumonia ICD Code: J18.9 (2) SIRS (systemic inflammatory response syndrome) ICD Code: R65.10 (3) Upper respiratory infection ICD Code: J06.9 (4) Sepsis ICD Code: A41.9 Physical Therapy: Precaution/Isolation: Standard Precautions Resuscitation Status: Full Code Fall Level: High Risk 51 or greater Subjective Pt sitting up in recliner. Ready to exercise. Oxygen Delivery: Nasal cannula O2 liters/minute: 1L Treatments Sit, Stand, Supine: Sitting, Long Sitting Extremity: Both Lower Extremity Repetition: 1 x 20 Exercise: AP, QS, Heel Slides, Hip Abduction, SLR, LAQ, Hip Flexion Transfers Sit-Stand from bed: Supervision or setup (from recliner) Stand-Sit: Contact Guard Assist Gait Ambulation: Contact Guard Assist Distance Walked: 180 feet with one standing rest break O2 sat dropped to 85% on 2 liters. Recovered to 90% on 4 liters. After walking O2 sat at 92% after short sitting rest break on 2 liters. Assistive Device: FWW Gait Description: Decreased Thais, Slow, Shuffling, Short Step Length, Flexed Trunk Gait Training: Limitations: SOB, Fatigue cues to step up into walker. Education/Plan Assessment Safety Awareness: Intact Plan Patient will be seen: Daily Tuesday-Tuesday Discharge Recommendations: TCU/Skilled NH Coding Time In: 11:30 Time Out: 12:04 Total Minutes: 34 Charges: 62764 Exercise Therp 15 m (34 minutes) Robert Grullon PTA December 24, 2016 12:12
[2016-12-24 12:35] VITALS: BP 143/63
--- NOTE | 2016-12-24 12:36 | Progress Note (E) ---
Progress Note SUBJECTIVE Overnight, no major issues. Weaned to 1 L NC. Other vitals stable. Short of breath still with activity. WBC still a bit elevated, 15.55 with no bands but with 83% N. Chemistry stable. CRP down to 5.70. On exam, reports feeling better. Daughter raises concern about lesion on her lip. This had been bleeding briefly on admit but then stopped on its own. Daughter says the lesion has bled from time to time. Has been presented for at least 2 years. Raises concern about cancer. Exam as noted below. OBJECTIVE Vital Signs Date Time Temp Pulse Resp B/P Pulse Ox O2 Delivery O2 Flow Rate FiO2 12/24/16 08:00 97.5 75 22 127/47 90 Nasal cannula 12/21/16 16:08 4L.00 I & O 12/23/16 12/24/16 Cumulative From/Thru 19:00 07:00 12/21/16 10:02 - 12/24/16 06:03 Intake Total 1383 ml 487 ml 3384 ml Output Total 100 ml 850 ml 2050 ml Balance 1283 ml -363 ml 1334 ml GEN: Awake, alert, oriented. Breathing more easily. HEENT: EOMI, clear sclerae, moist oral mucosa. Sore to bottom lip no longer bleeding. 3 mm, purplish nodule. Dentures. CV: Tachycardia resolved. Regular without significant murmur. LUNGS: Diminished throughout. Some intermittent rhonchi in bases. ABD: Soft, NT/ND with normal bowel sounds. EXTR: No C/C/E. Normal peripheral pulses. INTEG: No rash. Age related changes. NEURO: No focal motor neuro deficit. Weight: 57.1 kg (54.5 kg on admit) Lab-Past 14 Days, 35 Results 12/21/16 09:36: Absolute Band Neutrophils 4.2, Alanine Aminotransferase (ALT/SGPT) 22L, Albumin 4.0#, Albumin/Globulin Ratio 1.111, Alkaline Phosphatase 142H, Anion Gap 17.1H, Aspartate Amino Transf (AST/SGOT) 36, BUN/Creatinine Ratio 37H, Band Neutrophils % 20H, Basophils # (Auto) , Basophils # (Manual) 0.0, Basophils % ( Manual) 0, Basophils (%) (Auto) , Blood Morphology Comment Normal, Blood Urea Nitrogen 34#H, C-Reactive Protein 38.70H, Calcium Level 10.1#, Calcium/Ionized Calcium Ratio 4.3, Calculated Osmolality 279L, Carbon Dioxide Level 24, Chloride Level 103, Creatinine 0.91, Differential Total Cells Counted 100, Eosinophils # 0.0, Eosinophils # (Auto) , Eosinophils % (Manual) 0, Eosinophils (%) (Auto) , Estimat Glomerular Filtration Rate 70.6, Estimated GFR (Non- 58.3, Glucose Level 120H, Hematocrit 42.00, Hemoglobin 13.8, Lymphocytes # 0.7, Lymphocytes # (Auto) , Lymphocytes % (Manual) 3L, Lymphocytes (%) (Auto) , Mean Corpuscular Hemoglobin 26.7, Mean Corpuscular Hemoglobin Concent 32.9, Mean Corpuscular Volume 81, Mean Platelet Volume 11.1H , Metamyelocytes % 1, Monocytes # 2.1, Monocytes # (Auto) , Monocytes % (Manual ) 10, Monocytes (%) (Auto) , TM-Skl-N-Type Natriuretic Peptide 1560H, Neutrophils # 14.5, Neutrophils # (Auto) , Neutrophils (%) (Auto) , Platelet Count 282, Potassium Level 3.9, Red Blood Count 5.16H, Red Cell Distribution Width 14.2, Segmented Neutrophils % 66, Sodium Level 140, Total Bilirubin 1.5#H , Total Protein 7.6, White Blood Count 21.99H 12/21/16 10:25: Lactic Acid Level 2.1, Troponin I < 0.012 12/21/16 15:17: Troponin I < 0.012 12/22/16 05:25: Absolute Band Neutrophils 0.1, Albumin 3.4, Anion Gap 13.8, Band Neutrophils % 1 , Basophils # (Auto) , Basophils # (Manual) 0.0, Basophils % (Manual) 0, Basophils (%) (Auto) , Blood Morphology Comment Normal, Blood Urea Nitrogen 31H , Calcium Level 9.7, Carbon Dioxide Level 27, Chloride Level 104, Creatinine 0.90, Differential Total Cells Counted 100, Eosinophils # 0.0, Eosinophils # ( Auto) , Eosinophils % (Manual) 0, Eosinophils (%) (Auto) , Estimat Glomerular Filtration Rate 71.5, Estimated GFR (Non- 59.1, Glucose Level 150#H, Hematocrit 37.90, Hemoglobin 12.6, Lymphocytes # 1.0, Lymphocytes # (Auto ) , Lymphocytes % (Manual) 7L, Lymphocytes (%) (Auto) , Mean Corpuscular Hemoglobin 27.4, Mean Corpuscular Hemoglobin Concent 33.2, Mean Corpuscular Volume 82, Mean Platelet Volume 10.5H, Monocytes # 0.7, Monocytes # (Auto) , Monocytes % (Manual) 5, Monocytes (%) (Auto) , Neutrophils # 12.2, Neutrophils # (Auto) , Neutrophils (%) (Auto) , Platelet Count 293, Potassium Level 3.8, Red Blood Count 4.60, Red Cell Distribution Width 14.0, Segmented Neutrophils % 87H, Sodium Level 141, White Blood Count 13.99H, Phosphorus Level 4.4# 12/23/16 05:30: Absolute Band Neutrophils 0.1, Albumin 2.8L, Anion Gap , Band Neutrophils % 1, Basophils # (Auto) , Basophils # (Manual) 0.0, Basophils % (Manual) 0, Basophils (%) (Auto) , Blood Morphology Comment Normal, Blood Urea Nitrogen 32H , Calcium Level 9.6, Carbon Dioxide Level 27, Chloride Level 106, Creatinine 0.79, Differential Total Cells Counted 100, Eosinophils # 0.0, Eosinophils # ( Auto) , Eosinophils % (Manual) 0, Eosinophils (%) (Auto) , Estimat Glomerular Filtration Rate 83.1, Estimated GFR (Non- 68.7, Glucose Level 125H, Hematocrit 37.00, Hemoglobin 11.8L, Lymphocytes # 1.9, Lymphocytes # (Auto ) , Lymphocytes % (Manual) 13L, Lymphocytes (%) (Auto) , Mean Corpuscular Hemoglobin 26.2, Mean Corpuscular Hemoglobin Concent 31.9, Mean Corpuscular Volume 82, Mean Platelet Volume 10.1H, Metamyelocytes % 0, Monocytes # 0.7, Monocytes # (Auto) , Monocytes % (Manual) 5, Monocytes (%) (Auto) , Neutrophils # 12.0, Neutrophils # (Auto) , Neutrophils (%) (Auto) , Phosphorus Level 3.4#, Platelet Count 313, Potassium Level 4.1, Red Blood Count 4.50, Red Cell Distribution Width 14.2, Segmented Neutrophils % 81H, Sodium Level 142, White Blood Count 14.86H 12/24/16 05:35: Absolute Band Neutrophils 0.0, Albumin 2.8L, Anion Gap 9.7, Band Neutrophils % 0 , Basophils # (Auto) , Basophils # (Manual) 0.0, Basophils % (Manual) 0, Basophils (%) (Auto) , Blood Morphology Comment Normal, Blood Urea Nitrogen 29H , Calcium Level 9.1, Carbon Dioxide Level 30H, Chloride Level 105, Creatinine 0.82, Differential Total Cells Counted 100, Eosinophils # 0.0, Eosinophils # ( Auto) , Eosinophils % (Manual) 0, Eosinophils (%) (Auto) , Estimat Glomerular Filtration Rate 79.6, Estimated GFR (Non- 65.8, Glucose Level 92 #, Hematocrit 37.50, Hemoglobin 12.2, Lymphocytes # 1.6, Lymphocytes # (Auto) , Lymphocytes % (Manual) 10L, Lymphocytes (%) (Auto) , Mean Corpuscular Hemoglobin 26.9, Mean Corpuscular Hemoglobin Concent 32.5, Mean Corpuscular Volume 83, Mean Platelet Volume 9.7H, Metamyelocytes % 0, Monocytes # 1.1, Monocytes # (Auto) , Monocytes % (Manual) 7, Monocytes (%) (Auto) , Neutrophils # 12.9, Neutrophils # (Auto) , Neutrophils (%) (Auto) , Phosphorus Level 2.9, Platelet Count 358, Potassium Level 3.6, Red Blood Count 4.54, Red Cell Distribution Width 14.3, Segmented Neutrophils % 83H, Sodium Level 141, White Blood Count 15.55H, C-Reactive Protein 5.70H MICRO 12/21 Blood culture Negative to date 12/21 Sputum culture Haemophilus influenza, large amount. Beta-lactamase negative. IMAGING 12/21/16 CHEST 1 VIEW, AP/PA ONLY* INDICATION: Shortness of breath. COMPARISON: 10/27/2015. FINDINGS: Heterogeneous consolidations are present in the right mid and lower lung zones. These are new since prior examination. Possible small right pleural effusion. No pneumothorax. Normal heart size. Normal pulmonary vasculature. IMPRESSION: Right basilar heterogeneous consolidations may be due to pneumonia or aspiration, depending on clinical scenario. Consider followup PA and lateral chest radiographs in four weeks after appropriate medical management to assess for resolution and exclude underlying malignancy. ASSESSMENT Carlee Morse is a 86 year old female admitted from ED 12/21 with acute respiratory failure and SIRS/sepsis attributed to community acquired pneumonia. She has a few chronic problems. PLAN * SIRS/Sepsis: Resolving. Due to pneumonia. * Acute Respiratory Failure: Due to pneumonia, COPD exacerbation. On 4 L oxygen on admit, weaning gradually. Not normally on oxygen at home. Acapella. Oxygen protocol. * Community Acquired Pneumonia due to Haemophilus influenza: Blood culture negative to date. Sputum pending. Acapella. Guaifenesin. Levofloxacin (Q48H dosing due to renal function.) * COPD with Acute Exacerbation: Due to pneumonia. Oxygen protocol. Methylprednisolone with transition to prednisone. Fluticasone/salmeterol, albuterol. * Deconditioning: PT/OT eval and treat. * Dehydration: NS bolus given in ED. Additional 1 L maintenance on admit. Monitor closely. * Tachycardia: Resolved. Likely due to sepsis. * Lip Lesion: Bled briefly on admit. Chronic x 2 years. Refer to ENT for evaluation after discharge. Might need biopsy. * F/E/N: Regular diet. Peripheral IV. I&O, daily weight. * Prophylaxis: Enoxaparin * Code Status: Full * Dispo: Inpatient, expecting 3 day stay and need for skilled care. Had considered d/c to skilled care 12/24 but may need a little more time... defer to 12/25 at earliest. CHRONIC ISSUES * Depression: Citalopram * HTN: Observe. STEVE PABLO MD December 24, 2016 12:11
--- NOTE | 2016-12-24 14:50 | NUR ---
Pt. has been accepted to [facility] skilled care. Pt. to possibly discharge tomorrow to [place] [phone]/[id number] [phone].
[2016-12-24 15:16] VITALS: BP 124/59
[2016-12-24] MEDS ORDERED: GUAI120016 PO (15:22)
[2016-12-24] MEDS ORDERED: DOCU100C8 PO (15:22)
[2016-12-24] MEDS ORDERED: AC325T PO (15:22)
[2016-12-24] MEDS ORDERED: PRD20T PO (15:22)
[2016-12-24] MEDS ORDERED: MAGN400O7 PO (15:22)
[2016-12-24] MEDS ORDERED: POLY17PO2 PO (15:22)
[2016-12-24] MEDS ORDERED: ALBU2.5V4 INH (15:22)
[2016-12-24] MEDS ORDERED: LEVO750T39 PO (15:22)
--- NOTE | 2016-12-24 17:29 | OT Daily Note Inpatient (E) ---
OT Daily Treatment Service Date/Time 12/24/16, 17:28 Primary Diagnosis: (1) Community acquired pneumonia ICD Code: J18.9 (2) SIRS (systemic inflammatory response syndrome) ICD Code: R65.10 (3) Upper respiratory infection ICD Code: J06.9 (4) Sepsis ICD Code: A41.9 Treatment Diagnosis: (1) Weakness ICD Code: R53.1 Onset Date: 12/17/16 Start of Care Date: December 22, 2016 Precaution/Isolation: Standard Precautions Fall Level: High Risk 51 or greater Resuscitation Status: Full Code Oxygen Needed: Nasal cannula O2 liters/minute: 2 Current Function Assessment Cognition Attention: Intact Memory: Impaired Safety/Judgement: Impaired (Cueing for walker safety. ) Visual/Perceptual Skills Glassess: Yes Hearing: Impaired Hand Dominance Hand Dominance: Right Education/Assessment Rehabilitation Potential: Good POC Plan of Care Problems Identified: Activity Tolerance, ADLs, Lt UE Strength, Rt UE Strength, Safety Awareness Plan: Evaluation-OT, ADL/Self Care Management, Therapy Exercises, Therapy Activities, Pt/Family/Staff Education Frequency of OT: Five times weekly Duration of OT: Other (3 days ) Therapy to Include: ADL training, Balance with ADLs, Pt/family education, Therapeutic activities, UE strengthing Discharge Recommendations: TCU/Skilled NH Pt. Aware of Dx and Prognosis: Yes Pt. Aware of Risk & Benefit: Yes Goals: Discussed with patient Short Term Goals Will Perform Grooming: With Setup/SBA Will Dress Upper Extremity: With Setup/SBA Will Dress Lower Extremity: With Setup/SBA Will do Bathing: With Setup/SBA Will do Toileting: With Setup/SBA Will Perform Funct Transfer: With Setup/SBA STG #1 Pt will participate in 15 min of ther-ex with use of energy conservation techniques as needed. STG #2 Pt will demonstrate ability to apply deep breathing techniques during daily activities and exercises with minimal prompting to ease shortness of breath and improve performance. CPT/G Codes No Treatment Provide Reason: Other (Unable to see patient this date due to therapist's schedule. ) LIUDMILA GROVES OT December 24, 2016 17:29
--- NOTE | 2016-12-24 17:55 | NUR ---
Pt rests this afternoon; has visitors at various times. Denies c/o. Cont on 2L oxygen per nc. SL intact.
[2016-12-24 19:32] VITALS: BP 151/58
[2016-12-24 23:48] VITALS: BP 143/57
[2016-12-25 04:29] VITALS: BP 150/59
--- NOTE | 2016-12-25 06:32 | NUR ---
Patient rests in bed throughout night with minimal needs, no reports of pain or discomfort. Resting with eyes closed at this time. No needs reported at this time.
[2016-12-25] MEDS ORDERED: LEVOFLOXACIN 750 MG TAB (LEVAQUIN) PO SCH (08:00)
[2016-12-25 08:06] VITALS: BP 167/72
[2016-12-25] MEDS: FLUTICASONE/SALMETEROL HFA 115/21 MCG (ADVAIR) COMMON CANNISTER INH SCH (08:29)
--- NOTE | 2016-12-25 08:30 | NUR ---
Pt sitting up in chair at this time. Denies pain. SL intact. Skin warm, dry, intact. Resprs nonlabored, even, audibly wheezing on 2L NC. Pt denies SOA. Denies needs. Call light within reach.
[2016-12-25] MEDS: ALBUTEROL 0.083% NEB SOLUTION 2.5 MG/3 ML VIAL INH PRN (08:34)
--- NOTE | 2016-12-25 08:37 | NUR ---
Pt found sitting in her chair on 2 l/min NC. SPO2 90%, HR 91, RR 18 and mildly labored with an audible expiratory wheeze heard from about 6 feet away. Upon auscultation, left upper lobe has expiratory wheezes and I opt to give PRN Albuterol via SVN/MASK along with 2p Advair 115/21 via spacer. Pt rinsed mouth post Tx. Acapella X2 with moderate NPC. Decreased Wheezes in left lung post Tx. Upper airway, oropharynx area wheezes persist.
[2016-12-25] MEDS: SERTRALINE 25 MG PO SCH (09:06)
[2016-12-25] MEDS: ENOXAPARIN 30 MG/0.3 ML (LOVENOX) SYR SC SCH (09:06)
[2016-12-25] MEDS: predniSONE 20 MG (DELTASONE) TABLET PO SCH (09:06)
--- NOTE | 2016-12-25 09:56 | Discharge Instructions (E) ---
Discharge Instructions Instructions * You were evaluated and treated for aggravation of COPD due to pneumonia. Your sputum grew a bacteria called Haemophilus influenzae, a common cause of pneumonia in people who have COPD. You improved with IV antibiotic called levofloxacin. You will complete therapy after discharge with oral levofloxacin. * For COPD, oxygen and breathing treatments will be continued. long-term staff will work on getting your oxygen off as your pneumonia improves. * You will benefit from further rehab and close monitoring of your medical condition. You are thus being discharged to [facility] for further recovery in skilled care. You will receive physical and occupational therapy that will help improve your strength and endurance. Activity Instructions As tolerated. Doctor's Appointment * Follow-up with your primary care doctor in 3-5 days. * Because of a lesion on your lower lip, it is recommended you see and ear, nose , and throat doctor to have this evaluated. It might need to have a biopsy. Dr. Dexter is an ENT who comes to [facility] in [place]. He was out of town so a referral could not be arranged at the time of discharge. However, records will be sent to his office and you can call next week to schedule an initial consultation. Discharge Diet: STEVE Pham MD December 25, 2016 09:54
--- NOTE | 2016-12-25 10:07 | Discharge Summary (E) ---
Discharge Summary (E) Admit Date/Time December 21, 2016 at 11:30 Discharge Date/Time December 25, 2016 Admitting Provider Darrick Krause MD Primary Care Provider Enrique Leary MD Attending Provider Darrick Krause MD Consulting Provider History and Present Illness Carlee Morse is a 86 year old female admitted from ED 12/21 with acute respiratory failure and SIRS/sepsis attributed to community acquired pneumonia. She was given levofloxacin. Sputum grew Haemophilus influenzae. She improved with standard COPD therapies but at time of discharge was still on 2 L oxygen. She was felt to benefit from further rehab in skilled care and was thus discharged to [facility]. Of note, she had a small 2 mm purple nodule on her lower lip that had some bleeding when she was admitted. It was felt this should be evaluated so referral information was sent to ENT. Their office was not able to schedule an appointment before discharge, so it was recommended that patient call early next week to schedule. Hospital Course and Treatment * SIRS/Sepsis: Resolved. Due to pneumonia. * Acute Respiratory Failure: Due to pneumonia, COPD exacerbation. On 4 L oxygen on admit, weaned gradually to 2 L at time of discharge. Not normally on oxygen at home. Continue efforts at wean in skilled care, but may need home oxygen. Continued acapella. * Community Acquired Pneumonia due to Haemophilus influenza: Blood culture negative to date. Sputum as noted. Acapella. Guaifenesin. Levofloxacin (Q48H dosing due to renal function.) Continued at discharge. * COPD with Acute Exacerbation: Due to pneumonia. Oxygen protocol. Methylprednisolone with transition to prednisone. Fluticasone/salmeterol, albuterol. * Dehydration: Resolved. NS bolus given in ED. Additional 1 L maintenance on admit. Monitor closely. * Tachycardia: Resolved. Likely due to sepsis. * Lip Lesion: Bled briefly on admit. Chronic x 2 years. Refer to ENT for evaluation after discharge. Might need biopsy. * Deconditioning: PT/OT eval and treat. Continue in skilled care. * F/E/N: Regular diet. Peripheral IV. I&O, daily weight. * Prophylaxis: Enoxaparin * Code Status: Full * Dispo: Inpatient. Discharged to [facility] for skilled care. CHRONIC ISSUES * Depression: Citalopram * HTN: Observe. Discharge Physicial Exam General Vital Signs Date Time Temp Pulse Resp B/P Pulse Ox O2 Delivery O2 Flow Rate FiO2 12/25/16 08:06 97.9 94 26 167/72 90 Nasal cannula 2L.00 GEN: Awake, alert, oriented. Breathing more easily. HEENT: EOMI, clear sclerae, moist oral mucosa. Sore to bottom lip no longer bleeding. 2 mm, purplish nodule. Dentures. CV: Tachycardia resolved. Regular without significant murmur. LUNGS: Diminished throughout. Some intermittent rhonchi and wheezes in bases. ABD: Soft, NT/ND with normal bowel sounds. EXTR: No C/C/E. Normal peripheral pulses. INTEG: No rash. Age related changes. NEURO: No focal motor neuro deficit. Weight: 56.9 kg (54.5 kg on admit) Laboratory/Radiology Data Laboratory Results-14 Days 12/21/16 09:36: Absolute Band Neutrophils 4.2, Alanine Aminotransferase (ALT/SGPT) 22L, Albumin 4.0#, Albumin/Globulin Ratio 1.111, Alkaline Phosphatase 142H, Anion Gap 17.1H, Aspartate Amino Transf (AST/SGOT) 36, BUN/Creatinine Ratio 37H, Band Neutrophils % 20H, Basophils # (Auto) , Basophils # (Manual) 0.0, Basophils % ( Manual) 0, Basophils (%) (Auto) , Blood Morphology Comment Normal, Blood Urea Nitrogen 34#H, C-Reactive Protein 38.70H, Calcium Level 10.1#, Calcium/Ionized Calcium Ratio 4.3, Calculated Osmolality 279L, Carbon Dioxide Level 24, Chloride Level 103, Creatinine 0.91, Differential Total Cells Counted 100, Eosinophils # 0.0, Eosinophils # (Auto) , Eosinophils % (Manual) 0, Eosinophils (%) (Auto) , Estimat Glomerular Filtration Rate 70.6, Estimated GFR (Non- 58.3, Glucose Level 120H, Hematocrit 42.00, Hemoglobin 13.8, Lymphocytes # 0.7, Lymphocytes # (Auto) , Lymphocytes % (Manual) 3L, Lymphocytes (%) (Auto) , Mean Corpuscular Hemoglobin 26.7, Mean Corpuscular Hemoglobin Concent 32.9, Mean Corpuscular Volume 81, Mean Platelet Volume 11.1H , Metamyelocytes % 1, Monocytes # 2.1, Monocytes # (Auto) , Monocytes % (Manual ) 10, Monocytes (%) (Auto) , TW-Gbc-W-Type Natriuretic Peptide 1560H, Neutrophils # 14.5, Neutrophils # (Auto) , Neutrophils (%) (Auto) , Platelet Count 282, Potassium Level 3.9, Red Blood Count 5.16H, Red Cell Distribution Width 14.2, Segmented Neutrophils % 66, Sodium Level 140, Total Bilirubin 1.5#H , Total Protein 7.6, White Blood Count 21.99H 12/21/16 10:25: Lactic Acid Level 2.1, Troponin I < 0.012 12/21/16 15:17: Troponin I < 0.012 12/22/16 05:25: Absolute Band Neutrophils 0.1, Albumin 3.4, Anion Gap 13.8, Band Neutrophils % 1 , Basophils # (Auto) , Basophils # (Manual) 0.0, Basophils % (Manual) 0, Basophils (%) (Auto) , Blood Morphology Comment Normal, Blood Urea Nitrogen 31H , Calcium Level 9.7, Carbon Dioxide Level 27, Chloride Level 104, Creatinine 0.90, Differential Total Cells Counted 100, Eosinophils # 0.0, Eosinophils # ( Auto) , Eosinophils % (Manual) 0, Eosinophils (%) (Auto) , Estimat Glomerular Filtration Rate 71.5, Estimated GFR (Non- 59.1, Glucose Level 150#H, Hematocrit 37.90, Hemoglobin 12.6, Lymphocytes # 1.0, Lymphocytes # (Auto ) , Lymphocytes % (Manual) 7L, Lymphocytes (%) (Auto) , Mean Corpuscular Hemoglobin 27.4, Mean Corpuscular Hemoglobin Concent 33.2, Mean Corpuscular Volume 82, Mean Platelet Volume 10.5H, Monocytes # 0.7, Monocytes # (Auto) , Monocytes % (Manual) 5, Monocytes (%) (Auto) , Neutrophils # 12.2, Neutrophils # (Auto) , Neutrophils (%) (Auto) , Platelet Count 293, Potassium Level 3.8, Red Blood Count 4.60, Red Cell Distribution Width 14.0, Segmented Neutrophils % 87H, Sodium Level 141, White Blood Count 13.99H, Phosphorus Level 4.4# 12/23/16 05:30: Absolute Band Neutrophils 0.1, Albumin 2.8L, Anion Gap , Band Neutrophils % 1, Basophils # (Auto) , Basophils # (Manual) 0.0, Basophils % (Manual) 0, Basophils (%) (Auto) , Blood Morphology Comment Normal, Blood Urea Nitrogen 32H , Calcium Level 9.6, Carbon Dioxide Level 27, Chloride Level 106, Creatinine 0.79, Differential Total Cells Counted 100, Eosinophils # 0.0, Eosinophils # ( Auto) , Eosinophils % (Manual) 0, Eosinophils (%) (Auto) , Estimat Glomerular Filtration Rate 83.1, Estimated GFR (Non- 68.7, Glucose Level 125H, Hematocrit 37.00, Hemoglobin 11.8L, Lymphocytes # 1.9, Lymphocytes # (Auto ) , Lymphocytes % (Manual) 13L, Lymphocytes (%) (Auto) , Mean Corpuscular Hemoglobin 26.2, Mean Corpuscular Hemoglobin Concent 31.9, Mean Corpuscular Volume 82, Mean Platelet Volume 10.1H, Metamyelocytes % 0, Monocytes # 0.7, Monocytes # (Auto) , Monocytes % (Manual) 5, Monocytes (%) (Auto) , Neutrophils # 12.0, Neutrophils # (Auto) , Neutrophils (%) (Auto) , Phosphorus Level 3.4#, Platelet Count 313, Potassium Level 4.1, Red Blood Count 4.50, Red Cell Distribution Width 14.2, Segmented Neutrophils % 81H, Sodium Level 142, White Blood Count 14.86H 12/24/16 05:35: Absolute Band Neutrophils 0.0, Albumin 2.8L, Anion Gap 9.7, Band Neutrophils % 0 , Basophils # (Auto) , Basophils # (Manual) 0.0, Basophils % (Manual) 0, Basophils (%) (Auto) , Blood Morphology Comment Normal, Blood Urea Nitrogen 29H , Calcium Level 9.1, Carbon Dioxide Level 30H, Chloride Level 105, Creatinine 0.82, Differential Total Cells Counted 100, Eosinophils # 0.0, Eosinophils # ( Auto) , Eosinophils % (Manual) 0, Eosinophils (%) (Auto) , Estimat Glomerular Filtration Rate 79.6, Estimated GFR (Non- 65.8, Glucose Level 92 #, Hematocrit 37.50, Hemoglobin 12.2, Lymphocytes # 1.6, Lymphocytes # (Auto) , Lymphocytes % (Manual) 10L, Lymphocytes (%) (Auto) , Mean Corpuscular Hemoglobin 26.9, Mean Corpuscular Hemoglobin Concent 32.5, Mean Corpuscular Volume 83, Mean Platelet Volume 9.7H, Metamyelocytes % 0, Monocytes # 1.1, Monocytes # (Auto) , Monocytes % (Manual) 7, Monocytes (%) (Auto) , Neutrophils # 12.9, Neutrophils # (Auto) , Neutrophils (%) (Auto) , Phosphorus Level 2.9, Platelet Count 358, Potassium Level 3.6, Red Blood Count 4.54, Red Cell Distribution Width 14.3, Segmented Neutrophils % 83H, Sodium Level 141, White Blood Count 15.55H, C-Reactive Protein 5.70H MICRO 12/21 Blood culture Negative to date 12/21 Sputum culture Haemophilus influenza, large amount. Beta-lactamase negative. IMAGING 12/21/16 CHEST 1 VIEW, AP/PA ONLY* INDICATION: Shortness of breath. COMPARISON: 10/27/2015. FINDINGS: Heterogeneous consolidations are present in the right mid and lower lung zones. These are new since prior examination. Possible small right pleural effusion. No pneumothorax. Normal heart size. Normal pulmonary vasculature. IMPRESSION: Right basilar heterogeneous consolidations may be due to pneumonia or aspiration, depending on clinical scenario. Consider followup PA and lateral chest radiographs in four weeks after appropriate medical management to assess for resolution and exclude underlying malignancy. Discharge Disposition Discharged to [facility] for further rehab in skilled care. Instructions * You were evaluated and treated for aggravation of COPD due to pneumonia. Your sputum grew a bacteria called Haemophilus influenzae, a common cause of pneumonia in people who have COPD. You improved with IV antibiotic called levofloxacin. You will complete therapy after discharge with oral levofloxacin. * For COPD, oxygen and breathing treatments will be continued. [facility] staff will work on getting your oxygen off as your pneumonia improves. * You will benefit from further rehab and close monitoring of your medical condition. You are thus being discharged to [facility] for further recovery in skilled care. You will receive physical and occupational therapy that will help improve your strength and endurance. Activity Instructions As tolerated. Appointments * Follow-up with your primary care doctor in 3-5 days. * Because of a lesion on your lower lip, it is recommended you see and ear, nose , and throat doctor to have this evaluated. It might need to have a biopsy. Dr. Dexter is an ENT who comes to [facility] in [place]. He was out of town so a referral could not be arranged at the time of discharge. However, records will be sent to his office and you can call next week to schedule an initial consultation. Discharge Diet: Regular Discharge Medications New Medications: Albuterol Sulfate (Albuterol Sulfate) 2.5 Mg/3 Ml Vial.neb 2.5 MG INH Q4H PRN DYSPNEA #25 Ref 1 VIAL Guaifenesin (Guaifenesin) 1,200 Mg Tab.er.12h 1200 MG PO BID #14 Ref 0 TAB Acetaminophen (Acetaminophen) 325 Mg Tablet 650 MG PO Q6H PRN PAIN #0 Ref 0 TAB Docusate Sodium (Docusate Sodium) 100 Mg Capsule 100 MG PO BID PRN CONSTIPATION #0 Ref 0 CAP Levofloxacin (Levaquin) 750 Mg Tablet 750 MG PO Q48H #2 Ref 0 TAB Magnesium Hydroxide (Milk of Magnesia 400mg/5ml) 400 Mg/5 Ml Oral.susp 30 ML PO DAILY PRN CONSTIPATION #0 Ref 0 ML Polyethylene Glycol 3350 (Miralax) 17 Gm Powd.pack 17 GM PO DAILY PRN CONSTIPATION #0 Ref 0 PACKET Prednisone (Deltasone) 20 Mg Tab 40 MG PO DAILY@0800 40 mg daily x 2 days, then 20 mg daily x 2 days, then 10 mg daily x 2 days, then stop. #7 Ref 0 TAB Continued Medications: Albuterol Sulfate (Proventil HFA) 6.7 Gm Hfa.aer.ad 6.7 GM IH DAILY Fluticasone/Salmeterol (Advair 100-50 Diskus) 1 Each Disk.w.dev 1 EACH IH BID DISKUS Hydroxyzine HCl (Hydroxyzine HCl) 25 Mg Tablet 25 MG PO HS Sertraline HCl (Sertraline HCl) 25 Mg Tablet 25 MG PO DAILY Follow up Follow up Referrals: Physician Referral - Within 1 week with Uriel Dexter MD New Orders: CXR (CHEST PA/LAT (2 VIEW)* - Within 2 weeks Discharge Diagnosis See list above. Problems: Copies to: End of Report . DARRICK KRAUSE MD December 25, 2016 10:07
--- NOTE | 2016-12-25 12:38 | NUR ---
Report called to Herlinda RN at ext [phone] at [facility]. Pt changed into home clothes. SL removed with catheter tip intact. No redness or edema noted. Belongings gathered. Pt states her kids are already aware of her being transferred to [facility] today. Denies offer from this nurse to call them and update them. Transportation to arrive at 1300.
--- NOTE | 2016-12-25 13:23 | NUR ---
Pt dismissed at this time via w/c accompanied by Dami Ceja. Skin warm, dry, intact. Resprs nonlabored, even on 2L NC. Pt appreciative of cares.
--- NOTE | 2016-12-28 08:53 | Physical Therapy Evaluation(E) ---
Discharge Summary Service Date/Time 12/28/16, 08:50 Primary Diagnosis: (1) Community acquired pneumonia ICD Code: J18.9 (2) SIRS (systemic inflammatory response syndrome) ICD Code: R65.10 (3) Upper respiratory infection ICD Code: J06.9 (4) Sepsis ICD Code: A41.9 Treatment Diagnosis: Onset Date: 12/21/2016 Start of Service Date: December 22, 2016 Summary of Progress Summary Comment The patient actively participate in physical therapy sessions. Demonstrated improved activity tolerance however fatigued quickly. The patient was discharged from hospital to [facility]. She was last treated on 12/25/2016. Distance Walked in Feet Patient declined ambulation. Assistive Device: FWW Assist: Supervision Required Gait Description: Decreased Thais, Slow, Shuffling, Short Step Length, Flexed Trunk Gait Limitations: SOB, Fatigue Transfer STG and Status Rolling: Modified Craig Goal Status at Discharge: Goal Partially Met Sit-Supine: Modified Craig Goal Status at Discharge: Goal Partially Met Sitting Edge of Bed: Modified Craig Goal Status at Discharge: Goal Met Supine-Sit: Modified Craig Sit-Stand from bed: Contact Guard Assist Goal Status at Discharge: Goal Met Stand-Sit: Contact Guard Assist Goal Status at Discharge: Goal Met Ambulation: Contact Guard Assist (100 feet x 2 ) Goal Status at Discharge: Goal Partially Met Transfer LTG and Status Comment No group home goals to be set secondary to short anticipated length of stay Plan of Care Goals and Status STG: Plan-Treatment Functional: Amb Safe w/ AD on level Goal Status at Discharge: Goal Partially Met Discharge Recommendations: TCU/Skilled NH Service Recommendations: Continue Service (Patient would benefit from additional therapy services to improve strength, activity tolerance, and overall functional mobility. ) FATOUMATA CARIAS PT December 28, 2016 08:53
== END 2016-12-25 13:22 | DRG 871 ==
LOC: EDBD 09:52 → EDUNIT# 09:52 → ED 09:56 → MED/SURG 11:30
PROVIDERS: ADMIT Internal Medicine; ATTEND Internal Medicine
DX: A41.9 Sepsis, unspecified organism (principal); J14 Pneumonia due to Hemophilus influenzae; J96.00 Acute respiratory failure, unspecified whether with hypoxia or hypercapnia; J44.0 Chronic obstructive pulmonary disease with (acute) lower respiratory infection; J44.1 Chronic obstructive pulmonary disease with (acute) exacerbation; K13.0 Diseases of lips; E86.0 Dehydration; I10 Essential (primary) hypertension; F32.9 Major depressive disorder, single episode, unspecified; Z87.891 Personal history of nicotine dependence
CPT/HCPCS: 36415; 71010; 80053; 80069; 83605; 83880; 84484; 85025; 86140; 87040; 87070; 87077; 87185; 87186; 87205; 93005; 94640; 94669; 94760; 96365; 99283; 99285

== ENCOUNTER → 2016-12-21 | Outpatient (CLI) | payer MEDICARE ==
[~2016-12-21] MED LIST: ALBU6.7H IH; FLUT1DIS2 IH; HYDR-700 PO; ONDA4TAB11 PO; SERT25TA69 PO
== END ==
LOC: EMS 09:50
PROVIDERS: ATTEND Emergency Medicine
DX: R06.02 Shortness of breath (principal); R05 Cough